=== PATIENT | female | born 1930 | race Caucasian/White ===

== ENCOUNTER 2016-04-15 10:55 | Outpatient (CLI) | payer MEDICARE, BC | END 2016-04-15 10:56 | disposition home or self-care (01) | DX: I35.1 Nonrheumatic aortic (valve) insufficiency (principal); I34.0 Nonrheumatic mitral (valve) insufficiency; I07.1 Rheumatic tricuspid insufficiency; I50.9 Heart failure, unspecified; I48.0 Paroxysmal atrial fibrillation ==

== ENCOUNTER 2016-04-15 11:44 | Outpatient (CLI) | payer MEDICARE, BC | END 2016-04-15 11:45 | disposition home or self-care (01) | DX: I48.0 Paroxysmal atrial fibrillation (principal); I50.22 Chronic systolic (congestive) heart failure ==

== ENCOUNTER 2016-05-07 14:09 | Outpatient (CLI) | payer MEDICARE, BC | END 2016-05-07 14:10 | disposition home or self-care (01) | DX: N18.4 Chronic kidney disease, stage 4 (severe) (principal); I50.22 Chronic systolic (congestive) heart failure ==

== ENCOUNTER 2016-05-15 09:56 | Outpatient (CLI) | payer MEDICARE, BC | END 2016-05-15 09:57 | disposition home or self-care (01) | DX: N18.4 Chronic kidney disease, stage 4 (severe) (principal); I50.22 Chronic systolic (congestive) heart failure ==

== ENCOUNTER 2016-10-15 11:01 | Outpatient (CLI) | payer MEDICARE, BC ==
--- NOTE | 2016-10-15 12:44 | Ultrasound Report ---
BILATERAL LOWER EXTREMITY VENOUS DUPLEX: 10/15/2016 CLINICAL INDICATION: Bilateral thigh pain. TECHNIQUE: Real-time sonographic vascular imaging was performed by the strategy manager through the lower extremities utilizing both color flow and Doppler spectral analysis. Multiple artist's representative static images were saved for review. FINDINGS: A bilateral lower extremity venous sonogram is performed revealing the common femoral, superficial femoral, profunda femoris, and popliteal veins to be adequately visualized without intraluminal defects. There is normal venous compression, augmentation, phasicity, and spontaneity of venous flow. In the calf, the visualized more cephalad portions of posterior tibial and peroneal veins are grossly compressible, without filling defects. Incidental note is made of a 5-cm left Gonzalez cyst. There is thickening of the wall of the right superficial femoral vein, suggestive of previous DVT. IMPRESSION: NO EVIDENCE OF DEEP VENOUS THROMBOSIS. JOB #: [id number] JOB #: [id number] CHERRI
== END 2016-10-15 11:02 | disposition home or self-care (01) ==
LOC: DI 11:01
PROVIDERS: ATTEND Nurse Practitioner Family
DX: M79.652 Pain in left thigh (principal)
CPT/HCPCS: 93970

== ENCOUNTER 2017-05-25 14:50 | Outpatient (CLI) | payer MEDICARE, BC | END 2017-05-25 14:51 | disposition home or self-care (01) | LOC: LAB.F 14:50 | PROVIDERS: ATTEND Family Medicine | DX: I48.1 Persistent atrial fibrillation (principal) | CPT/HCPCS: 85610 ==

== ENCOUNTER 2017-06-04 08:00 | Outpatient (CLI) | payer MEDICARE, BC | END 2017-06-04 08:01 | disposition home or self-care (01) | LOC: LAB.F 08:00 | PROVIDERS: ATTEND Family Medicine | DX: I48.1 Persistent atrial fibrillation (principal) | CPT/HCPCS: 85610 ==

== ENCOUNTER 2017-07-08 14:14 | Outpatient (CLI) | payer MEDICARE, BC | END 2017-07-08 14:15 | disposition home or self-care (01) | LOC: LAB.F 14:14 | PROVIDERS: ATTEND Internal Medicine Cardiovascular Disease | DX: R06.09 Other forms of dyspnea (principal); I48.0 Paroxysmal atrial fibrillation; I50.22 Chronic systolic (congestive) heart failure; I48.1 Persistent atrial fibrillation | CPT/HCPCS: 85610 ==

== ENCOUNTER 2017-07-19 14:48 | Outpatient (CLI) | payer MEDICARE, BC | END 2017-07-19 14:49 | disposition home or self-care (01) | LOC: LAB.F 14:48 | PROVIDERS: ATTEND Family Medicine | DX: I48.1 Persistent atrial fibrillation (principal) | CPT/HCPCS: 85610 ==